=== PATIENT | female | born 1980 | race Caucasian/White ===

== ENCOUNTER → 2021-09-24 13:58 | Outpatient (CLI) | payer OTHER, SELFPAY ==
--- NOTE | ~2021-09-24 | MM_ITS ---
EXAMINATION: MM screening [facility] BI w [facility] HISTORY: Screening mammogram TECHNIQUE: Craniocaudal and mediolateral oblique 3-D tomosynthesis images were obtained and synthetic 2-D images were generated. CAD analysis was submitted and interpreted. COMPARISON: None, baseline BREAST PARENCHYMAL COMPOSITION: The breasts are heterogeneously dense, which may obscure small masses . FINDINGS: There is no evidence of suspicious mass, calcification, or architectural distortion to sugg est malignancy in either breast. IMPRESSION: 1. No mammographic evidence of malignancy. 2. Recommend routine screening mammography in one year. BI-RADS Category 1: Negative Reviewed, dictated and finalized at location A. S WRITER
== END ==
PROVIDERS: Visit Provider Nurse Practitioner Obstetrics & Gynecology
DX: Z12.31 Encounter for screening mammogram for malignant neoplasm of breast (principal)
CPT/HCPCS: 77063; 77067

== ENCOUNTER → 2022-12-22 07:23 | Outpatient (CLI) | payer BC, SELFPAY ==
--- NOTE | ~2022-12-22 | MM_ITS ---
EXAMINATION: MM screening [facility] BI w [facility] HISTORY: Screening mammogram TECHNIQUE: Craniocaudal and mediolateral oblique 3-D tomosynthesis images were obtained and synthetic 2-D images were generated. CAD analysis was submitted and interpreted. COMPARISON: 09/24/2021 BREAST PARENCHYMAL COMPOSITION: There are scattered areas of fibroglandular density. FINDINGS: No suspicious mass, calcification, or architectural distortion are identified in either rickie ast to suggest malignancy. There has been no suspicious interval change. IMPRESSION: 1. No mammographic evidence of malignancy. 2. Recommend routine screening mammography in one year. BI-RADS Category 1: Negative Reviewed, dictated and finalized at location A.
== END ==
PROVIDERS: PCP Nurse Practitioner Obstetrics & Gynecology; Visit Provider Nurse Practitioner Obstetrics & Gynecology
DX: Z12.31 Encounter for screening mammogram for malignant neoplasm of breast (principal)
CPT/HCPCS: 77063; 77067

== ENCOUNTER 2024-01-27 15:20 | Outpatient (CLI) | payer BC, SELFPAY ==
--- NOTE | ~2024-01-27 | MM_ITS ---
EXAMINATION: MM screening [facility] BI w [facility] HISTORY: Screening TECHNIQUE: Craniocaudal and mediolateral oblique 3-D tomosynthesis images were obtained and synthetic 2-D images were generated. CAD analysis was submitted and interpreted. COMPARISON: Comparison to multiple prior studies sequentially, with oldest reviewed study dated 04/2022. BREAST PARENCHYMAL COMPOSITION: Not dense: There are scattered areas of fibroglandular density. FINDINGS: There is no evidence of suspicious mass, calcification, or architectural distortion to sugg est malignancy in either breast. There has been no suspicious interval change. IMPRESSION: 1. No mammographic evidence of malignancy. 2. Recommend routine screening mammography in one year. BI-RADS Category 1: Negative Reviewed, dictated and finalized at location B.
== END 2024-01-27 15:21 ==
LOC: MICIMG 15:21
PROVIDERS: PCP Nurse Practitioner Obstetrics & Gynecology; Visit Provider Nurse Practitioner Obstetrics & Gynecology
DX: Z12.31 Encounter for screening mammogram for malignant neoplasm of breast (principal)
CPT/HCPCS: 77063; 77067

== ENCOUNTER 2024-10-18 08:22 | Outpatient (CLI) | payer OTHER, SELFPAY ==
--- OUTSIDE RECORDS SUMMARY | 2024-10-18 08:37 | XMS_ITS | Clinical Summary ---
Author Organization [facility] Address [address] [place] [address] Care Team Providers Care Wool Classer Name Role Phone Unknown, Notinfile Primary Care Provider Unavail able Allergies Active Allergy Reactions Criticality Noted Date Comments Amoxicillin Swelling,Rash Medium 12/09/2020 Penicillins Swelling,Rash Medium 12/09/2020 Medications doxycycline (PERIOSTAT) 20 mg tablet 09/30/2020 Active Active Problems No known active problems Surgical History Surgery Date Site/Laterality Comments ANTERIOR CRUCIATE LIGAMENT REPAIR Left Social History Tobacco Use Types Packs/Day Years Used Date Smoking Tobacco: Never Personal Safety Answer Date Recorded Getting School Help Needed Not on file 10/30 Comments Unknown Sex and Gender Information Value Date Recorded Sex Assigned at Not on file Legal Sex Female 2:24 PM CDT Gender Identity Not on file Sexual Orientation Not on file Obstetrics History Last Filed Vital Signs Vital Sign Reading Time Taken Comments Blood Pressure 122/87 12/09/2020 8:41 AM CDT Pulse 66 12/09/2020 8:41 AM CDT Temperature - - Respiratory Rate - - Oxygen Saturation - - Inhaled Oxygen Concentration - - Weight 70.9 kg (156 lb 3.2 oz) 12/09/2020 8:41 A M CDT Height 162.6 cm (5' 4 ) 12/09/2020 8:41 AM CDT Body Mass Index 26.81 12/09/2020 8:41 AM CDT Plan of Treatment Not on file Insurance [employer] Care Teams Wool Classer Relationship Specialty Start Date End Date Unknown, Notinfile PCP - General 11/26/20
--- OUTSIDE RECORDS SUMMARY | 2024-10-18 08:37 | XMS_ITS | Referral Summary ---
Author Organization [facility] Address [address] [place] [address] Care Team Providers Care Procedures Analyst Name Role Phone Unknown, Notinfile Primary Care Provider Unavail able Allergies Active Allergy Reactions Criticality Noted Date Comments Amoxicillin Swelling,Rash Medium 12/09/2020 Penicillins Swelling,Rash Medium 12/09/2020 Medications doxycycline (PERIOSTAT) 20 mg tablet 09/30/2020 Active Active Problems No known active problems Social History Tobacco Use Types Packs/Day Years Used Date Smoking Tobacco: Never Personal Safety Answer Date Recorded Getting School Help Needed Not on file 10/30 Comments Unknown Sex and Gender Information Value Date Recorded Sex Assigned at Not on file Legal Sex Female 2:24 PM CDT Gender Identity Not on file Sexual Orientation Not on file Last Filed Vital Signs Vital Sign Reading [...] file Insurance [employer] Care Teams Procedures Analyst Relationship Specialty Start Date End Date Unknown, Notinfile PCP - General 11/26/20
--- OUTSIDE RECORDS SUMMARY | 2024-10-18 08:37 | XMS_ITS | Data Portability ---
Author Organization [facility] [place] Address [address] [place] [address] Care Team Providers Care Costumer Name Role Phone JERSEY JASMINE Primary Care Provider [phone] Assessment Encounter Date Assessment Date Assessment LastModified by Organization Details LastModified Time 11/29/2020 11/29/2020 Annual gynecological exam performed. Patient will come back in a year unless there are new symptoms. Not available 11/28/2020 17:45:32 09/16/2022 09/16/2022 Annual gynecological exam performed. Patient will come back in a year unless there are new symptoms. Not available 09/16/2022 09:31:45 09/22/2023 09/22/2023 Annual gynecological exam performed. Patient will come back in a year unless there are new symptoms. Not available 09/22/2023 09:24:17 Plan of Treatment Reminders Order Date Submit Date Provider Last Modified By Organization Details Last Modified Time Details Appointments None recorded. Lab None recorded. Referral None recorded. Procedures None recorded. Surgeries None recorded. Imaging MAMMO, screening, bilateral 2023 024 HELENE [facility], [address], [place], [address], 08:56:40 Medication Orders None recorded. Patient TargetsNo targets recorded. Patient InstructionsNo instructions recorded. Reason for Referral None Reported. Results Created Date Observation Date Name Description Value Unit Range Abnormal Flag Note LastModifiedBy Organization Detail LastModifiedTime 02/01/20 23 09/16/2022 IMAGE GUIDE D PAP AND HPV REGAR DLESS image guided Pap, HPV regardless of Pap result SEE RESULT S BELOW CASE REPOR T: Cytol ogy Gynec ologi pradip Repor t Case: [id number] Autho blanche pierson Provi geovani: Ena belle , Rachelle Dixon cted: 09/16 1433 HEDIS NURSE Order ing Locat ion: [place] [facility] Recei jam: 09/17 0139 First Scree n: Troy lucio, [place] , [place] Rescr een: Zhou Newton Speci men: Scree erick Pap - Image d, Cervi x STATE MENT OF ADEQU ACY: UNSAT ISFAC TORY SPECI MEN FINAL DIAGN OSIS: Unsat isfac tory for evalu ation . Inade quate squam ous epith elial compo nent for diagn osis. Elect adilia garcia suly d by Zhou Newton on 023 at 3:59 PM ----- ----- ----- ----- ----- ----- ----- ----- ----- ----- ----- ----- ----- ----- ----- ----- ----- ---- HPV RESUL TS: HPV mRNA E6/E7 : No HPV mRNA Detec yousuf NOTE: This high risk HPV mRNA assay detec ts fourt een high- risk HPV types (16, 18, 31, 33, 35, 39, 45, 51, 52, 56, 58, 59, 66, 68) witho ut diffe renti ation . COMME NT: Note: This speci men was revie wed by a Cytot echno logis t and/o r Patho logis t (as indic ated in this repor t) after evalu ation using the Thinp rep Imagi ng Syste m. CLINI PRADIP INFOR MATIO N: Menst rual Statu s: LMP (if appli cable ): Clini pradip Histo ry/Pr eviou s Pap: Type of Neopl matilda (if appli cable ): Signi fican t Clini pradip Findi ngs: Other Histo ry: Hormo nico (if appli cable ): Not Available [facility] (Lab) [address], [place], [address], 09/18/2022 17:01:41 11/26/19 23 11/25/2022 IMAGE GUIDE D PAP AND HPV REGAR DLESS image guided Pap, HPV regardless of Pap result SEE RESULT S BELOW CASE REPOR T: Cytol ogy Gynec ologi pradip Repor t Case: [id number] Autho blanche pierson Provi geovani: Ena belle , Rachelle Dixon cted: 11/25 1640 HEDIS NURSE Order ing [place]at [place]: [place] [facility] [place] Recei jam: 11/26 0626 First Scree n: Heri Yousif am, CT Speci men: Cipriano suarez Pap - Image d, Cervi x STATE MENT OF ADEQU ACY: Satis facto ry for evalu ation Trans forma tion zone compo nent prese nt FINAL DIAGN OSIS: Negat fernandez for Intra epith elial Calros bent[place] or Dom ricardo (NIL) . Elect adilia garcia suly d by Heri Yousif am, CT on 2022 at 6:44 AM ----- ----- ----- ----- ----- ----- ----- ----- ----- ----- ----- ----- ----- ----- ----- ----- ----- ---- HPV RESUL TS: HPV mRNA E6/E7 : No HPV mRNA Detec yousuf NOTE: This high risk HPV mRNA assay detec ts fourt een high- risk HPV types (16, 18, 31, 33, 35, 39, 45, 51, 52, 56, 58, 59, 66, 68) witho ut diffe renti ation . COMME NT: This speci men was revie wed by a Cytot echno logis t and/o r Patho logis t (as indic ated in this repor t) after evalu ation using the Thinp rep Imagi ng Syste m. CLINI PRADIP INFOR MATIO N: Menst rual Statu s: LMP (if appli cable ): Clini pradip Histo ry/Pr eviou s Pap: Type of Neopl matilda (if appli cable ): Signi fican t Clini pradip Findi ngs: Other Histo ry: Hormo nico (if appli cable ): PAP EDUCA LIZZ L NOTE: The Pap Test is a scree erick test with an inher ent false negat fernandez rate. Liqui d-bas ed sampl ing may decre ase, but will not elimi avila, false negat fernandez resul ts. A negat fernandez resul t does not precl ude the prese nce and/o r devel opmen t of disea se, since the prese nce of abnor mal cells in the sampl e depen ds on the locat ion of the lesio n and sampl ing techn ique. Zeina nued regul ar scree erick is the best metho d of cance r preve ntion . If repor yousuf cytol ogic findi ng do not corre late with physi pradip and/o r histo rical findi ngs, furth er inves tigat ion is recom fredy d, as clini nadege ny nted. Not Available [facility] (Lab) [address], [place], [address], 11/28/2022 07:47:32 09/22/19 24 09/22/2023 IMAGE GUIDE D PAP AND HPV REGAR DLESS image guided Pap, HPV regardless of Pap result SEE RESULT S BELOW CASE REPOR T: Cytol ogy Gynec ologi pradip Repor t Case: [id number] Autho blanche g Provi geovani: Renard Melo Colle cted: 09/22 1003 HEDIS NURSE Order ing Locat ion: [place] [facility] [place] Recei jam: 09/23 0546 First Scree n: Frances Lopez Rescr een: Masno en, Zhou ndra Speci men: Scree erick Pap - Image d, Cervi x STATE MENT OF ADEQU ACY: Unsat isfac tory for evalu ation . FINAL DIAGN OSIS: Unsat isfac tor for evalu ation . Scant squam ous cellu larit y due to exces s inter zara g blood . Elect donaldtheodora liu by Zhou Newton on 2023 at 2:18 PM ----- ----- ----- ----- ----- ----- ----- ----- ----- ----- ----- ----- ----- ----- ----- ----- ----- ---- HPV RESUL TS: HPV mRNA E6/E7 : No HPV mRNA Detec yousuf NOTE: This high risk HPV mRNA assay detec ts fourt een high- risk HPV types (16, 18, 31, 33, 35, 39, 45, 51, 52, 56, 58, 59, 66, 68) witho ut diffe renti ation . COMME NT: This speci men was revie wed by a Cytot echno logis t and/o r Patho logis t (as indic ated in this repor t) after evalu ation using the Thinp rep Imagi ng Syste m. NOTE: A repro cessi ng proce dure was perfo rmed and the addit ional slide confi nicole [facility] . CLINI PRADIP INFOR MATIO N: Menst rual Statu s: LMP (if appli cable ): Clini pradip Histo ry/Pr eviou s Pap: Type of Neopl matilda (if appli cable ): Signi fican t Clini pradip Findi ngs: Other Histo ry: Hormo nico (if appli cable ): Not Available [facility] (Lab) [address], [place], [address], 09/27/2023 15:21:11 09/24/19 22 09/24/2021 MAMMO , scree erick, bilat eral No observ ation record ed. sherri [facility] [address] [address], [place], [address], 09/29/2021 15:38:20 12/23/19 23 12/22/2022 MAMMO , scree erick, bilat eral No observ ation record ed. [email or web address] [facility] [address], [place], [address], 09/22/2023 09:42:01 01/29/20 24 01/27/2024 MAMMO , scree erick, bilat eral No observ ation record ed. HELENE [facility] [address], [place], [address], 02/15/2024 04:15:42 Result Notes None recorded. Problems Name Problem SNOMED Code Status Onset Date Resolution Date Notes Provider Name and Address Organization Details Recorded Time Speciali zed medical examinat ion Completed 201211/28/2020 Gynecolo gical Examinat ion;Chad rded Elsewher e: No Locat ion: [facility] S ource: EHR Rf Test Technician tereso: N Roxanne ce ID: 0001 Jose Miguel lable Time: 02:30:00 PM Renae Coleman [facility] 17:49:20 Contrace ptive sheath status [id number] Completed 201611/28/2020 IUD follow up;Recor ded Elsewher e: No Locat ion: [facility] S ource: EHR Rf Test Technician tereso: N Sarkisti ce ID: 0001 Jose Miguel lable Time: 10:45:00 AM Renae Coleman [facility] 17:48:35 Screenin g for malignan t neoplasm of cervix Completed 201005/10/2012 Screenin g for malignan t neoplasm s of the cervix;R ecorded Elsewher e: No Locat ion: [facility] S ource: EHR Rf Test Technician tereso: N Sarkisti ce ID: 0001 Jose Miguel lable Time: 02:00:00 PM Renae Coleman [facility] 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 1 17:49:18 Abscess of Bartholi n's gland 42222450 Active 2011 Abscess of bartholi n's gland;Re corded Elsewher e: No Locat ion: [facility] S ource: EHR Rf Test Technician tereso: Y Sarkisti ce ID: 0001 Jose Miguel lable Time: 11:30:00 AM Not Available [facility] 0 14:53:03 Atypical squamous cells of undeterm ined signific ance on cervical Papanico laou smear 511571391 Active 2016 Atyp squam cell of undet signfc cyto smr crvx (ASC-US) ;Recorde d Elsewher e: No Locat ion: [facility] S ource: EHR Rf Test Technician tereso: N Practi ce ID: 0001 Jose Miguel lable Time: 10:30:00 AM Not Available [facility] 0 14:53:03 Pregnanc y test negative 495406647 Completed 201611/28/2020 Encounte r for pregnanc y test, result negative ;Recorde d Elsewher e: No Locat ion: [facility] S ource: EHR Rf Test Technician tereso: N Practi ce ID: 0001 Jose Miguel lable Time: 01:00:00 PM Renae kingsley [facility] 1 17:48:55 Removal of intraute rine device Completed 201611/28/2020 Encounte r for removal of intraute rine contrace ptive device;R ecorded Elsewher e: No Locat ion: [facility] S ource: EHR Rf Test Technician tereso: N Practi ce ID: 0001 Jose Miguel lable Time: 01:00:00 PM Renae Coleman [facility] [address] 17:49:[address] Concept Completed 201611/28/2020 Encntr for general adult medical exam w/o abnormal findings ;Recorde d Elsewher e: No Locat ion: [facility] S ource: EHR Rf Test Technician tereso: N Sarkisti ce ID: 0001 Jose Miguel lable Time: 10:30:00 AM Renae Coleman [facility] 1 17:49:12 Insertio n of intraute rine contrace ptive device Completed 201105/10/2012 INSERTIO N OF IUD;Chad rded Elsewher e: No Locat ion: [facility] S ource: EHR Rf Test Technician tereso: N Sarkisti ce ID: 0001 Jose Miguel lable Time: 01:00:00 PM Not Available [facility] 0 14:53:03 Pregnanc y test negative [id number] Completed 201105/10/2012 Pregnanc y examinat ion or test, negative result;R ecorded Elsewher e: No Locat ion: [facility] S ource: EHR Rf Test Technician tereso: N Sarkisti ce ID: 0001 Jose Miguel lable Time: 01:00:00 PM Renae Coleman [facility] 1 17:48:55 Family planning surveill ance Completed 201111/28/2020 Contrace ptive surveill ance, unspecif ied;Chad rded Elsewher e: No Locat ion: [facility] S ource: EHR Rf Test Technician tereso: N Sarkisti ce ID: 0001 Jose Miguel lable Time: 03:00:00 PM Renae [facility] 1 17:48:49 Removal of intraute rine device Completed 201105/10/2012 REMOVAL OF IUD;Chad rded Elsewher e: No Locat ion: [facility] S ource: EHR Rf Test Technician tereso: N Practi ce ID: 0001 Jose Miguel lable Time: 03:45:00 PM [facility] 1 17:49:06 Insertio n of intraute rine contrace ptive device Active 2016 Encounte r for insertio n of intraute rine contrace ptive device;R ecorded Elsewher e: No Locat ion: [facility] S ource: EHR Rf Test Technician tereso: N Practi ce ID: 0001 Jose Miguel lable Time: 01:00:00 PM Not Available [facility] [address] 14:53:[address] Concept Completed 201911/28/2020 Encntr for routine child health exam w/o abnormal findings ;Recorde d Elsewher e: No Locat ion: [facility] N Sarkisti ce ID: 0001 Jose Miguel lable Time: 09:30:00 AM Renae kingsley [facility] 1 17:49:16 Cyst of Bartholi n's gland duct [id number] Completed 201111/28/2020 Cyst of bartholi n's gland;Pr actice ID: 0001 Renae Coleman [facility] 1 17:48:42 Screenin g for malignan t neoplasm of cervix Completed 201211/28/2020 Pap Smear;Pr actice ID: 0001 Renae Coleman [facility] 1 17:49:10 Problem Notes None recorded. Procedures Surgical History Date Name Laterality Status Provider Name and Address Organization Details Recorded Time 3 Date of Last Mammogram completed Jeimy Robin [facility] 09/22/2023 09:11:53 3 Date of Last Pap Smear completed Jeimy Robin [facility] 09/22/2023 09:12:15 1 IUD Removal completed Riana Prieto, [facility]- [address], [place], [address], [facility] 11/29/2020 12:14:43 4 procedure on knee completed [facility] 11/29/2020 11:58:39 2 drainage of Bartholin's abscess completed [facility] 11/28/2020 17:57:46 0 drainage of Bartholin's abscess completed [facility] 11/28/2020 17:57:34 0 excision of Bartholin's cyst completed [facility] 11/28/2020 17:58:27 8 excision of Bartholin's cyst completed [facility] 11/28/2020 17:56:38 Imaging Results Imaging Date Name Status LastModified by Organiz ation Details LastModified Time 09/24/2021 MAMMO, screening, bilateral completed layran [facility] [address], [place], [address], 09/29/2021 15:38:20 12/22/2022 MAMMO, screening, bilateral completed [email or web address] [facility] [address], [place], [address], 09/22/2023 09:42:01 01/27/2024 MAMMO, screening, bilateral active HELENE [facility] [address], [place], [address], 02/15/2024 04:15:42 Procedure Notes None recorded. Medical Equipment None Reported. Allergies Allergen ID Allergen Name Allergen Category Reaction Reaction Severity Criticality Documentation Date Start Date Code Code System Note Provider Name and Address Organization Details Recorded Time 67098 amoxicill in medicatio n Not available Not available Not available 08/02/2020 723 RxNorm Comme nt: [facility]at [facility]; Not Available [facility] 0 14:20:45 Penicilli n Not available hives severe Not available 09/16/2022 67825 RxNorm Wendy Leon [place], [place] - [facility] 3 09:32:07 Medications Name Sig Start Date Stop Date Status Note LastModified by Organization Details LastModified Time Mirena 21 mcg/24 hr (up to 8 years) 52 mg intrauter ine device 09/15 completed Prescrib ed Elsewher e: No Locat ion: [facility] odify By: daphnie quinn DateTime : 04/13/20 12 03:45:00 PM Not Available Not Available Not Available doxycycli ne hyclate 100 mg capsule take 1 capsule (100MG) by oral route 2 times every day for 10 days 2023 active Prescrib ed Elsewher e: No Locat ion: [facility] odify By: anthony quinn DateTime : 07/14/20 12 11:30:00 AM Not Available Not Available Not Available clindamyc in HCl 300 mg capsule TAKE 1 CAPSULE BY MOUTH FOUR TIMES DAILY FOR 7 DAYS 09/22 completed Not Available Not Available Not Available azithromy scott 250 mg tablet TAKE 2 TABLETS BY MOUTH TODAY THEN 1 TABLET BY MOUTH FOR 4 DAYS 09/22 completed Not Available Not Available Not Available doxycycli ne hyclate 20 mg tablet 09/22 completed Not Available Not Available Not Available Oracea 40 mg capsule,i mmediate - delay release take 1 capsule by oral route every day in the morning at least 1 hour before or 2 hours after meals 11/28 completed Prescrib ed Elsewher e: Yes Loca tion: [facility] odify By: [email or web address] moffett DateTime : 06/01/20 17 10:45:00 AM Not Available Not Available Not Available Vitals Date Recorded Body height Body mass index (BMI) Body weight Provider Name and Address Organization Details Last Updated DateTime 11/29/2020 161.29 cm 27.4 kg/m2 56806.08 g Renae Coleman [facility] 11/29/2020 11:52:37 Date Recorded Systolic blood pressure Diastolic blood pressure Provider Name and Address Organization Details Last Updated DateTime 11/29/2020 133 mm[Hg] 80 mm[Hg] Riana Prieto, [facility] [address], [place], [address], [facility] 11/29/2020 12:13:03 Date Recorded Body height Body mass index (BMI) Body weight Provider Name and Address Organization Details Last Updated DateTime 09/16/2022 161.29 cm 30.9 kg/m2 12653.85 g Wendy [facility] 09/16/2022 09:41:52 Date Recorded Systolic blood pressure Diastolic blood pressure Provider Name and Address Organization Details Last Updated DateTime 09/16/2022 130 mm[Hg] 78 mm[Hg] Riana Prieto, [facility] [address], [place], [address], [facility] 09/16/2022 10:00:42 Date Recorded Body height Body mass index (BMI) Body weight Provider Name and Address Organization Details Last Updated DateTime 11/25/2022 161.29 cm 30.9 kg/m2 09508.85 g [facility] 11/25/2022 16:56:30 Date Recorded Systolic blood pressure Diastolic blood pressure Provider Name and Address Organization Details Last Updated DateTime 11/25/2022 128 mm[Hg] 76 mm[Hg] Riana Prieto [facility] [address], [place], [address], [facility] 11/25/2022 17:06:17 Date Recorded Body height Body mass index (BMI) Body weight Systolic blood pressure Diastolic blood pressure Provider Name and Address Organization Details Last Updated DateTime 09/22/2023 161.29 cm 32.4 kg/m2 07607.18 g 128 mm[Hg] 74 mm[Hg] Jeimy Lobito [facility] 09:24:40 Social History Question Answer Notes LastModified by Organizat ion Details LastModified Time Tobacco Smoking Status Never Smoker Bharti Lincoln teetee, [facility] 11/25/2022 16:43:31 What Is Your Level Of Alcohol Consumption? Occasional Information not available 09/16/2022 How Many Years Have You Consumed Alcohol? 20 Information not available 09/16/2022 Are You Blind Or Do You Have Difficulty Seeing? No Information n ot available 11/28/2020 What Is Your Level Of Caffeine Consumption? Moderate Information not available 11/29/2020 How Much Tobacco Do You Chew? None Information not available 09/16/2022 In The 14 Days Before Symptom Onset, Have You Had Close Contact With A Laboratory-confirm ed COVID-19 While That Case Was Ill? No Information n ot available 09/22/2023 In The 14 Days Before Symptom Onset, Have You Had Close Contact With A Person Who Is Under Investigation For COVID-19 While That Person Was Ill? No Information not available 11/28/2020 Have You Been To An Area Known To Be High Risk For COVID-19? No Information not available 09/22/2023 Are You Currently Employed? Yes [email or web address] Information not available 11/25/2022 Are You Deaf Or Do You Have Serious Difficulty Hearing? No Information not available 11/28/2020 What Type Of Diet Are You Following? REGULAR Information n ot available 11/28/2020 What Is The Highest Grade Or Level Of School You Have Completed Or The Highest Degree You Have Received? 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 Yes Information not available 09/16/2022 Do You Use Protection During Sex? No Information not available 09/16/2022 Do You Use Your Seat Belt Or Car Seat Routinely? Yes Information not available 11/28/2020 Are You Sexually Active? Yes [email or web address] Information not available 11/25/2022 Do You Have Smoke And Carbon Monoxide Detectors In Your Home? Yes Information not available 11/28/2020 How Much Tobacco Do You Smoke? No Information not available 09/16/2022 Do You Feel Stressed (tense, Restless, Nervous, Or Anxious, Or Unable To Sleep At Night)? [id number] Information not available 09/16/2022 Do You Use Any Illicit Or Recreational Drugs? No Information not available 11/29/2020 Do You Use Sunscreen Routinely? Yes Information not available 11/28/2020 Have You Used IV Drugs? No Information not available 09/16/2022 Sex: Unknown Functional Status Question Answer Note LastModified by Organization D etails LastModified Time Are you able to walk? YESWOREST Information not available 11/28/2020 What is your exercise level? Moderate Information not available 09/16/2022 Mental Status None recorded. Family History Relationship Description Onset Age of this Age Resolved Age Notes LastModified by Organization Details LastModified Time Paternal Grandfather Malignant tumor of prostate Not available 2020 17:54:14 Medical History Condition Response Other Y Gynecological History Statement/Question Response Abnormal Pap Y Date of Last Mammogram 12/22/2022 Flow Heavy Date of LMP 09/20/2023 Was last menstrual period normal Y STIs/STDs N HPV Vaccine Y Duration of Flow (days) 4 12 Current Control Method Partner Vas ectomy Are cycles usually normal N Frequency of Cycle (Q days) Sexually Active? Y Menses Monthly Y Age of first menstrual cycle 12 Date of Last Pap Smear 11/25/2022 Sexual Problems? N Desired Control Method Partner Vas ectomy LMP Approximate N 08/16/2016 Obstetrics History GPAL:G 0 P 0 0 0 0 Past Encounters Encounter ID Performer Location Encounter Start Date Encounter Closed Date Diagnosis/Indication Diagnosis SNOMED-CT Code Diagnosis ICD10 Code Diagnosis Note [id number] [facility] [address] [address] 11/29/2020 11:03:28 11/29/2020 12:26:20 Gynecologic examination 90609610 Z01.419 Suggested Calcium with Vitamin D 1200-1500m g daily. Patient advised to get an annual flu shot in the fall and she could obtain at [facility] or [facility] take care clinic. Also to obtain TDap vaccinatio n if you have not had one in the last 10 years. Recommend yearly mammograms . Encouraged monthly self breast exams. Encourage safe sexual practices, to use condoms and limit partners if not already in a monogamous relationsh ip. Engage in daily exercise of low impact aerobic exercise 45-60 minutes 4-5 times weekly. Avoid tobacco and illicit drugs as well as using moderation with alcohol intake less than 1-2 8 oz beverages daily. This lifestyle behavior pattern will lead to less health conditions and longer life span. If BMI greater than 25 weight watchers or dietary consult advised. All questions have been answered. Patient appears to understand informatio n, but if you have any questions please call or respond to this email. Pap/hpv hx is wnl Last pap/hpv 09/27/2019 wnl Monogamous -partner has vasectomy Mammo ordered (will wait for 90d from her second covid vaccinatio n) Menses wnl Declined std screening No issue or concerns Removal of intrauterine device 86372798 Z30.432 [id number] Riana Prieto [facility] [address] [address] 09/16/2022 09:29:59 09/16/2022 10:18:00 Gynecologic examination 29643469 Z01.419 Suggested Calcium with Vitamin D 1200-1500m g daily. Patient advised to get an annual flu shot in the fall and she could obtain at [facility] or [facility] care clinic. Also to obtain TDap vaccinatio n if you have not had one in the last 10 years. Recommend yearly mammograms . Encouraged monthly self breast exams. Encourage safe sexual practices, to use condoms and limit partners if not already in a monogamous relationsh ip. Engage in daily exercise of low impact aerobic exercise 45-60 minutes 4-5 times weekly. Avoid tobacco and illicit drugs as well as using moderation with alcohol intake less than 1-2 8 oz beverages daily. This lifestyle behavior pattern will lead to less health conditions and longer life span. If BMI greater than 25 weight watchers or dietary consult advised. All questions have been answered. Patient appears to understand informatio n, but if you have any questions please call or respond to this email. Pap/hpv sentSTD Screen declinedGe netic Screen discussedC olon Screen naDexa Screen naRoutine Labs PCPMammo orderedHx reviewed & updated [id number] Riana Prieto [facility] [address] [address] 11/25/2022 16:43:00 11/25/2022 17:13:53 Specimen unsatisfactory for evaluation [id number] R85.615 Insufficie nt pap specimen last pap.Here today to repeat pap. Time spent in visit is a total of 10 mins with at least 50% of visit consisting of counseling and review of plan of care. [id number] Riana Prieto [facility] [address] [address] 09/22/2023 09:18:44 09/22/2023 09:44:44 Gynecologic examination [id number] Z01.419 Z11.51 Suggested Calcium with Vitamin D 1200-1500m g daily. Patient advised to get an annual flu shot in the fall and she could obtain at [facility] or [facility]. Also to obtain TDap vaccinatio n if you have not had one in the last 10 years. Recommend yearly mammograms . Encouraged monthly self breast exams. Encourage safe sexual practices, to use condoms and limit partners if not already in a monogamous relationsh ip. Engage in daily exercise of low impact aerobic exercise 45-60 minutes 4-5 times weekly. Avoid tobacco and illicit drugs as well as using moderation with alcohol intake less than 1-2 8 oz beverages daily. This lifestyle behavior pattern will lead to less health conditions and longer life span. If BMI greater than 25 weight watchers or dietary consult advised. All questions have been answered. Patient appears to understand informatio n, but if you have any questions please call or respond to this email. Pap/hpv sentSTD Screen declinedGe netic Screen discussedC olon Screen naDexa Screen naRoutine Labs PCPMammo orderedHx reviewed & updated Screening mammography [id number] Z12.31 Health Concerns Section Related Observation LastModified by Organization Detai ls LastModified Time None Recorded Concern Status LastModified by Organization Details LastModified Time None Recorded Advance Directives Directive None Recorded Payers Encounter Date Sequence Insurance Name Policy Number Policy Shrestha Covered Member ID Shrestha Member ID Guarantor Name 11/29/2020 1 [facility] [id number] Laura Rosas [id number] Laura Michelletty 09/16/2022 1 [employer] [id number] Laura Rosas [id number] Laura Taylory 11/25/2022 1 [employer] [id number] Laura Rosas [id number] Laura Michelletty 09/22/2023 1 [employer] [id number] Laura Rosas [id number] Laura Rosas Notes Date Note Type Note Provider Name and Address Organization Details Recorded Time 11/29/2020 text/html Annual GYNReport ed bypatient.History: no gynecologic complaints Menstrual cycle:Normal menses Urinary symptoms:No hematuria; No incontinence Vulva:No genital lesion Vagina:Normal vaginal discharge Breast:No breast pain; No breast lump; No nipple discharge Current Contraception:Dunn gamous relationship; Intrauterine device (iud) (wants IUD removed); Partner had vasectomy Sexual complaints:No sexual complaints; No pain during intercourse; Normal libido Menopausal Symptoms:No menopausal symptoms; Normal vaginal lubrication Psychological symptoms:No depression; No anxiety; No PMDD Preventive measures:Encourage self breast examination; Encourage regular exercise; Encourage no tobacco use; Encourage regular mammograms starting age 40; Followed with Q3 year pap smear and high risk HPV typing (q3-5yrs.); Needs to schedule mammogram Riana Prieto, ELZ[facility]ET[facility]- [address], [place], [address], [facility] 11/29/2020 12:16:33 09/16/2022 text/html Annual GYNReport ed bypatient.History: no gynecologic complaints Menstrual cycle:Normal menses Urinary symptoms:No hematuria; No incontinence Vulva:No genital lesion Vagina:Normal vaginal discharge Breast:No breast pain; No breast lump; No nipple discharge Current Contraception:Sati sfied with current contraception; Partner had vasectomy Sexual complaints:No sexual complaints; No pain during intercourse; Normal libido Menopausal Symptoms:No menopausal symptoms; Normal vaginal lubrication Psychological symptoms:No depression; No anxiety; No PMDD Preventive measures:Encourage self breast examination; Encourage regular exercise; Encourage no tobacco use; Encourage regular mammograms starting age 40; Needs to schedule mammogram [address] [place], [address], [facility] 09/16/2022 10:02:58 11/25/2022 text/html Here today for repeat pap smear due to insufficient sample. [address] [place], [address], [facility] 11/25/2022 17:09:55 09/22/2023 text/html Annual GYNReport ed bypatient.History: no gynecologic complaints Menstrual cycle:Normal menses Urinary symptoms:No hematuria; No incontinence Vulva:No genital lesion Vagina:Normal vaginal discharge Breast:No breast pain; No breast lump; No nipple discharge Current Contraception:Sati sfied with current contraception; Partner had vasectomy Sexual complaints:No sexual complaints; No pain during intercourse; Normal libido Menopausal Symptoms:No menopausal symptoms; Normal vaginal lubrication Psychological symptoms:No depression; No anxiety; No PMDD Preventive measures:Encourage self breast examination; Encourage regular exercise; Encourage no tobacco use; Encourage regular mammograms starting age 40; Followed with yearly pap smears; Needs to schedule mammogram [address], [place], [address], [facility] 09/22/2023 09:43:15 OBGyn Episode No OBEpisode recorded.
[2024-10-18 08:59] LABS: Hematocrit 42.2 % (37.0-47.0); Hemoglobin 13.6 g/dL (12.0-15.0); Mean Corpuscular HGB Conc 32.2 g/dl (32-36); Mean Corpuscular Volume 96.1 fl (80-100); Mean Platelet Volume 9.3 fl (7.4-10.4); Platelet Count Result 206 k/mm3 (150-375); Red Blood Count 4.39 M/mm3 (4.2-5.4); Red Cell Distribution Width 12.7 % (11.5-14.5); White Blood Count 5.3 K/mm3 (4.5-10.0)
[2024-10-18 09:07] LABS: Iron 121 ug/dL (37-170)
[2024-10-18 09:12] LABS: Alanine Aminotransferase 25 U/L (6-35); Albumin Level 4.3 g/dL (3.5-5.1); Alkaline Phosphatase 78 U/L (38-126); Anion Gap 5 mmol/L (4-12); Aspartate Amino Transferase 26 U/L (14-36); Bilirubin,Total 0.6 mg/dL (0.2-1.3); Blood Urea Nitrogen 10 mg/dL (7-17); Calcium 9.7 mg/dL (8.4-10.2); Carbon Dioxide 29 mmol/L (22-30); Chloride 104 mmol/L (98-107); Cholesterol 215 mg/dL (0-200); Estimated Glomerular Filt Rate > 60; Glucose 95 mg/dL (65-110); HDL Direct 75 mg/dL; Potassium 4.4 mmol/L (3.4-5.0); Sodium 138 mmol/L (137-145); Triglycerides 192 mg/dL (<150)
[2024-10-18 09:30] LABS: LDL Cholesterol Direct 95 mg/dL
[2024-10-18 10:30] LABS: Folic Acid > 20.0 ng/mL (2.76->20); Vitamin B12 > 1000.0 pg/mL (239-931)
== END 2024-10-18 08:23 | disposition home or self-care (01) ==
LOC: ANHLAB 08:24
PROVIDERS: PCP Family Medicine; Visit Provider Nurse Practitioner Family
DX: Z13.220 Encounter for screening for lipoid disorders (principal); Z13.1 Encounter for screening for diabetes mellitus; Z13.29 Encounter for screening for other suspected endocrine disorder; D64.9 Anemia, unspecified
CPT/HCPCS: 36415; 80053; 80061; 82607; 82746; 83540; 84443; 85027